=== PATIENT | male | born 1980 | race Caucasian/White ===

== ENCOUNTER 2017-02-13 12:32 | Emergency (ER) | payer OTHER ==
[~2017-02-13] VITALS: Ht 177.8 cm; Wt 79.8 kg
[2017-02-13 12:38] VITALS: BP 162/88
--- NOTE | 2017-02-13 13:07 | ED GI/GU/ABDOMINAL COMPLAINT ---
History of Present Illness General Chief Complaint: Male Genitourinary Problems Stated Complaint: PAIN UPON URINATION Source: patient, old records Exam Limitations: no limitations Vital Signs & Intake/Output Vital Signs & Intake/Output Vital Signs Date Time Temp Pulse Resp B/P B/P Pulse O2 O2 Flow FiO2 Mean Ox Delivery Rate 02/13 1238 98.6 91 15 162/88 98 Room Air Room Air Allergies Coded Allergies: No Known Allergies (02/13/17) Reconcile Medications No Known Home Medications Triage Note: PT TO ED FOR C/C OF PAIN WITH URINATION, DENIES BURNING. DENIES ABD PAIN. DENIES TESTICLE PAIN. Triage Nurses Notes Reviewed? yes HPI: 36M NO PMH PRESENTING WITH ONE EPISODE OF PRESSURE LIKE INGUINAL PAIN WITH URINATION. ONE EPISODE YESTERDAY, THEN A NORMAL URINATION, ONE PAINFUL EPISODE THIS MORNING, THEN ANOTHER NORMAL URINATION WHILE IN ED. DENIES DYSURIA, HEMATURIA, ABDOMINAL PAIN, FEVER, CHILLS, N/V/D. SEXUALLY ACTIVE WITH ONLY HIS , DOES NOT USE CONDOMS. NO PENILE DISCHARGE. NO TESTICULAR PAIN OR DISCOMFORT. Past History Travel History Traveled to [place] past 21 day No Medical History Any Pertinent Medical History? 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 No Review of Systems Review of Systems Constitutional: Reports: no symptoms. EENTM: Reports: no symptoms. Respiratory: Reports: no symptoms. Cardiovascular: Reports: no symptoms. GI: Reports: no symptoms. Genitourinary: Reports: see HPI. Musculoskeletal: Reports: no symptoms. Skin: Reports: no symptoms. Neurological/Psychological: Reports: no symptoms. Hematologic/Endocrine: Reports: no symptoms. Immunologic/Allergic: Reports: no symptoms. All Other Systems: Reviewed and Negative Physical Exam Physical Exam General Appearance: well developed/nourished, no apparent distress, alert, comfortable Head: normal appearance Eyes: Bilateral: normal appearance. Ears, Nose, Throat, Mouth: moist mucous membrane Neck: normal inspection Respiratory: quiet respiration Cardiovascular: regular rate/rhythm Gastrointestinal: soft, non-tender Rectal: deferred Extremities: normal range of motion Core Measures ACS in differential dx? No Severe Sepsis Present: No Septic Shock Present: No Progress Differential Diagnosis: AAA, AMI, appendicitis, biliary colic, bowel obstruction , colon cancer, cholecystitis, diverticulitis, epididymitis, esophageal varices, gastritis, hepatitis, hernia, hemorrhoids, ischemic bowel, inflamm bowel dis, Reina-Norbert tear, orchitis, pancreatitis, prostatitis, peptic ulcer, PUD/GERD, perforated viscous, pyelonephritis, SBO, STD, testicular torsion, ureterolithiasis, urinary retention, urethritis, UTI/pyelo Plan of Care: Orders Procedure Date/time Status URINALYSIS 02/13 1241 Complete Laboratory Tests 02/13/17 1250: Urine Color YEL, Urine Clarity CLEAR, Urine pH 7.0, Ur Specific [place] 1.010, Urine Protein NEG, Urine Ketones NEG, Urine Nitrite NEG, Urine Bilirubin NEG, Urine Urobilinogen 0.2, Ur Leukocyte Esterase NEG, Ur Microscopic EXAM NOT REQUIRED, Urine Hemoglobin NEG, Urine Glucose NEG Initial ED EKG: none Departure Departure Time of Disposition: 1317 Disposition: HOME OR SELF CARE Condition: Stable Clinical Impression Primary Impression: Perineal pain in male Referrals: NAI PUENTE MD (PCP/Family) Additional Instructions: DRINK PLENTY OF WATER. IF YOU NOTICE BLOOD IN YOUR URINE OR ANY KIND OF DISCHARGE FROM YOUR PENIS OR REDNESS/PAIN IN THE AREA, RETURN TO ER OR SEE YOUR PCP. Departure Forms: Customer Survey General Discharge Information Prescriptions: Current Visit Scripts No Known Home Medications
== END 2017-02-13 13:21 ==
LOC: ERH 12:32
DX: R10.2 Pelvic and perineal pain (principal)
CPT/HCPCS: 81003